=== PATIENT | male | born 1940 | race Caucasian/White ===

== ENCOUNTER 2017-12-29 09:51 | Emergency (ER) | payer MEDICARE ==
[~2017-12-29] VITALS: Ht 172.7 cm; Wt 72.6 kg
[2017-12-29 09:54] VITALS: BP_SYST 147
[2017-12-29 10:28] LABS: HEMATOCRIT 46.5 % (36-54); HEMOGLOBIN 16.4 g/dL (14.0-18.0); MEAN CORPUSCULAR HEMOGLOBIN 34 pg (27-31); MEAN CORPUSCULAR HGB CONC 35 % (32-36); MEAN CORPUSCULAR VOLUME 96 fL (79.0-98.0); PLATELET COUNT (AUTO) 228 K/uL (130-430); RED BLOOD CELL COUNT(AUTO) 4.85 MIL/uL (4.2-6.2); RED CELL DISTRIBUTION WIDTH 11.7 % (9.0-15.0); WHITE BLOOD COUNT (AUTO) 21.5 K/uL (4.8-10.8)
[2017-12-29] MEDS ORDERED: NACL 0.9% 1,000 ML IV ONE (10:30)
[2017-12-29 10:43] LABS: ANION GAP 12 (5-15); CALCIUM 9.3 mg/dL (8.4-11.0); CHLORIDE 91 mmol/L (98-107); GLUCOSE 166 mg/dL (70-99); POTASSIUM 3.8 mmol/L (3.5-5.1); SODIUM SERUM 129 mmol/L (136-145); UREA NITROGEN, BLOOD 9 mg/dL (8-21)
[2017-12-29 10:56] LABS: BAND % (MANUAL) 6 % (0-6); LYMPHOCYTES % (MANUAL) 2 % (20-46)
[2017-12-29 10:57] LABS: ALANINE AMINOTRANSFERASE 39 U/L (12-78); ALBUMIN 3.1 g/dL (3.4-4.8); ASPARTATE AMINOTRANSFERASE 58 U/L (10-37); BASOPHILS % (MANUAL) 0 % (0-2); EOSINOPHILS % (MANUAL) 0 % (0-7); MONOCYTES % (MANUAL) 6 % (0-11); TOTAL BILIRUBIN 1.5 mg/dL (0.0-1.0)
[2017-12-29 10:58] LABS: ALCOHOL, BLOOD < 3 mg/dL (<10)
[2017-12-29] MEDS ORDERED: ALLO300T2 PO (11:09)
[2017-12-29] MEDS ORDERED: METO25TA6 PO (11:12)
[2017-12-29 11:23] LABS: CKMB RELATIVE INDEX 0.8 (0.0-2.9); CREATINE KINASE MB 12.1 ng/mL (0-3.6)
[2017-12-29 11:56] LABS: BILIRUBIN,URINE NEGATIVE (NEGATIVE); BLOOD, URINE 3+ (NEGATIVE); CLARITY/URINE CLEAR (CLEAR); COLOR,URINE YELLOW (YELLOW); GLUCOSE,URINE NEGATIVE (NEGATIVE); KETONES,URINE 1+ (NEGATIVE); LEUKOCYTE ESTERASE ,URINE NEGATIVE (NEGATIVE); NITRITE, URINE NEGATIVE (NEGATIVE); PROTEIN URINE 2+ (NEGATIVE)
[2017-12-29 12:20] LABS: BACTERIA,URINE FEW /HPF (None Seen); MUCUS,URINE None Seen /LPF (None Seen); WBC,URINE 0-3 /HPF (0-3); YEAST,URINE None Seen /HPF (None Seen)
[2017-12-29] MEDS ORDERED: ASPIRIN 81 MG TAB.CHEW PO ONE (13:15)
[2017-12-29] MEDS ORDERED: KETOROLAC TROMETHAMINE 15 MG VIAL IVP ONE (13:15)
[2017-12-29] MEDS ORDERED: fentaNYL CITRATE/PF 100 MCG/2 ML AMP IVP ONE (15:00)
[2017-12-29 15:29] VITALS: BP_SYST 114
== END 2017-12-29 15:28 | disposition short-term general hospital (02) ==
LOC: SED 09:51
DX: R55 Syncope and collapse (principal); I24.9 Acute ischemic heart disease, unspecified; M54.9 Dorsalgia, unspecified; I11.0 Hypertensive heart disease with heart failure; I50.9 Heart failure, unspecified; E11.9 Type 2 diabetes mellitus without complications; Z88.6 Allergy status to analgesic agent
CPT/HCPCS: 36415; 70450; 71045; 72040; 80053; 81000; 82550; 82553; 83605; 83880; 84484; 85007; 85027; 93005; 96361; 96374; 96375; 99291; G0482; J1885; J3010; J7030

== ENCOUNTER 2018-06-24 22:33 | Emergency (ER) | payer MEDICARE ==
[~2018-06-24] VITALS: Ht 170.2 cm; Wt 77.1 kg
[~2018-06-24 22:33] MED LIST: ALLO300T2 PO; DIPH-TET-PERTUS Vaccine 0.5 ML VIAL (ADACEL) I.M. ONE; METO25TA6 PO
[2018-06-24 22:40] VITALS: BP_SYST 190
[2018-06-25] MEDS ORDERED: DIPH-TET-PERTUS Vaccine 0.5 ML VIAL (ADACEL) IM ONE (01:00)
[2018-06-25 01:55] VITALS: BP_SYST 140
== END 2018-06-25 01:55 | disposition home or self-care (01) ==
LOC: SED 22:33
DX: S51.811A Laceration without foreign body of right forearm, initial encounter (principal); I11.0 Hypertensive heart disease with heart failure; I50.9 Heart failure, unspecified; E11.9 Type 2 diabetes mellitus without complications; Z88.6 Allergy status to analgesic agent; W01.0XXA Fall on same level from slipping, tripping and stumbling without subsequent striking against object, initial encounter; Y93.89 Activity, other specified; Y92.89 Other specified places as the place of occurrence of the external cause; Y99.8 Other external cause status
CPT/HCPCS: 90715; 99283

== ENCOUNTER 2018-12-05 21:35 | Emergency (ER) | payer MEDICARE ==
[~2018-12-05] VITALS: Ht 170.2 cm; Wt 74.8 kg
[2018-12-05 21:35] VITALS: BP_SYST 184
[~2018-12-05 21:35] MED LIST changes: -DIPH-TET-PERTUS Vaccine 0.5 ML VIAL (ADACEL) I.M. ONE
[2018-12-05 23:40] LABS: BILIRUBIN,URINE NEGATIVE (NEGATIVE); BLOOD, URINE NEGATIVE (NEGATIVE); CLARITY/URINE CLEAR (CLEAR); COLOR,URINE YELLOW (YELLOW); GLUCOSE,URINE NEGATIVE (NEGATIVE); KETONES,URINE NEGATIVE (NEGATIVE); LEUKOCYTE ESTERASE ,URINE NEGATIVE (NEGATIVE); NITRITE, URINE NEGATIVE (NEGATIVE); PROTEIN URINE NEGATIVE (NEGATIVE); UROBILINOGEN,URINE 0.2 (0.2-1.0)
[2018-12-05 23:50] LABS: BARBITURATE, URINE NEGATIVE (NEG <=200); BENZODIAZEPINE, URINE NEGATIVE (NEG <=150); CANNABINOID, URINE NEGATIVE (NEG <=50); COCAINE, URINE NEGATIVE (NEG <=150); METHAMPHETAMINES SCREEN,URINE NEGATIVE (NEG <=500); OPIATE, URINE NEGATIVE (NEG <=100); PHENCYCLIDINE SCREEN,URINE NEGATIVE (NEG <=25); UR TRICYCLIC ANTIDEPRESSANTS NEGATIVE (NEG <=300); URINE AMPHETAMINE NEGATIVE (NEG <=500); URINE METHADONE NEGATIVE (NEG <=200); URINE OXYCODONE SCREEN NEGATIVE (NEG <=100); URINE PROPOXYPHENE SCREEN NEGATIVE (NEG <=300)
[2018-12-05 23:54] LABS: ANION GAP 7 (5-15); CALCIUM 9.1 mg/dL (8.4-11.0); CHLORIDE 98 mmol/L (98-107); CREATININE 0.83 mg/dL (0.55-1.30); GLUCOSE 76 mg/dL (70-99); POTASSIUM 3.7 mmol/L (3.5-5.1); SODIUM SERUM 137 mmol/L (136-145); UREA NITROGEN, BLOOD 8 mg/dL (8-21)
[2018-12-06] LABS: ALANINE AMINOTRANSFERASE 22 U/L (12-78); ALBUMIN 3.3 g/dL (3.4-4.8); ALCOHOL, BLOOD 102 mg/dL (<10); ASPARTATE AMINOTRANSFERASE 25 U/L (10-37); TOTAL BILIRUBIN 0.4 mg/dL (0.0-1.0)
[2018-12-06 00:05] LABS: BASOPHILS # (AUTO) 0.1 K/uL (0.0-0.2); EOSINOPHILS # (AUTO) 0.2 K/uL (0.0-0.4); EOSINOPHILS % (AUTO) 3.3 % (0.0-4.0); HEMATOCRIT 45.2 % (36-54); LYMPHOCYTES # (AUTO) 0.8 K/uL (1.0-5.5); LYMPHOCYTES % (AUTO) 12.8 % (20.5-51.5); MEAN CORPUSCULAR HEMOGLOBIN 34 pg (27-31); MEAN CORPUSCULAR HGB CONC 36 % (32-36); MEAN CORPUSCULAR VOLUME 97 fL (79.0-98.0); MONOCYTES # (AUTO) 0.7 K/uL (0.0-1.0); MONOCYTES % (AUTO) 11.2 % (1.7-9.3); NEUTROPHILS # (AUTO) 4.6 K/uL (1.8-7.7); NEUTROPHILS % (AUTO) 71.7 % (40.0-70.0); PLATELET COUNT (AUTO) 251 K/uL (130-430); RED BLOOD CELL COUNT(AUTO) 4.67 MIL/uL (4.2-6.2); RED CELL DISTRIBUTION WIDTH 13.3 % (9.0-15.0); WHITE BLOOD COUNT (AUTO) 6.4 K/uL (4.8-10.8)
[2018-12-06 00:16] LABS: PROTHROMBIN TIME 10.3 SECS (9.5-12.5)
[2018-12-06 02:17] VITALS: BP_SYST 142
== END 2018-12-06 02:17 | disposition home or self-care (01) ==
LOC: SED 21:35
DX: S09.90XA Unspecified injury of head, initial encounter (principal); R55 Syncope and collapse; F10.10 Alcohol abuse, uncomplicated; I11.0 Hypertensive heart disease with heart failure; I50.9 Heart failure, unspecified; E11.9 Type 2 diabetes mellitus without complications; Z88.6 Allergy status to analgesic agent; Z79.899 Other long term (current) drug therapy; W18.09XA Striking against other object with subsequent fall, initial encounter; Y93.89 Activity, other specified; Y92.89 Other specified places as the place of occurrence of the external cause; Y99.8 Other external cause status
CPT/HCPCS: 36415; 70450; 71045; 80053; 80307; 81003; 84484; 85025; 85610; 85730; 93005; 99284; G0482

== ENCOUNTER 2018-12-22 21:25 | Emergency (ER) | payer MEDICARE ==
[~2018-12-22] VITALS: Ht 170.2 cm; Wt 74.8 kg
[2018-12-22 21:28] VITALS: BP_SYST 156
[2018-12-22] MEDS ORDERED: NACL 0.9% 1,000 ML IV ONE (22:00)
[2018-12-22 22:10] LABS: BASOPHILS # (AUTO) 0.1 K/uL (0.0-0.2); BASOPHILS % (AUTO) 1.1 % (0.0-2.0); EOSINOPHILS # (AUTO) 0.2 K/uL (0.0-0.4); EOSINOPHILS % (AUTO) 3.4 % (0.0-4.0); HEMATOCRIT 41.3 % (36-54); HEMOGLOBIN 14.5 g/dL (14.0-18.0); LYMPHOCYTES # (AUTO) 0.8 K/uL (1.0-5.5); LYMPHOCYTES % (AUTO) 14.5 % (20.5-51.5); MEAN CORPUSCULAR HEMOGLOBIN 34 pg (27-31); MEAN CORPUSCULAR HGB CONC 35 % (32-36); MEAN CORPUSCULAR VOLUME 96 fL (79.0-98.0); MONOCYTES # (AUTO) 0.6 K/uL (0.0-1.0); MONOCYTES % (AUTO) 10.9 % (1.7-9.3); NEUTROPHILS # (AUTO) 3.6 K/uL (1.8-7.7); NEUTROPHILS % (AUTO) 70.1 % (40.0-70.0); PLATELET COUNT (AUTO) 175 K/uL (130-430); RED BLOOD CELL COUNT(AUTO) 4.31 MIL/uL (4.2-6.2); WHITE BLOOD COUNT (AUTO) 5.2 K/uL (4.8-10.8)
[2018-12-22 22:23] LABS: ANION GAP 11 (5-15); CALCIUM 8.4 mg/dL (8.4-11.0); CHLORIDE 99 mmol/L (98-107); CREATININE 0.81 mg/dL (0.55-1.30); GLUCOSE 85 mg/dL (70-99); POTASSIUM 3.5 mmol/L (3.5-5.1); SODIUM SERUM 135 mmol/L (136-145); UREA NITROGEN, BLOOD 8 mg/dL (8-21)
[2018-12-22 22:28] LABS: ALANINE AMINOTRANSFERASE 16 U/L (12-78); ALCOHOL, BLOOD 125 mg/dL (<10); ASPARTATE AMINOTRANSFERASE 33 U/L (10-37); TOTAL BILIRUBIN 0.6 mg/dL (0.0-1.0)
[2018-12-22 22:44] LABS: BILIRUBIN,URINE NEGATIVE (NEGATIVE); BLOOD, URINE NEGATIVE (NEGATIVE); CLARITY/URINE CLEAR (CLEAR); COLOR,URINE YELLOW (YELLOW); GLUCOSE,URINE NEGATIVE (NEGATIVE); KETONES,URINE NEGATIVE (NEGATIVE); LEUKOCYTE ESTERASE ,URINE NEGATIVE (NEGATIVE); NITRITE, URINE NEGATIVE (NEGATIVE); PROTEIN URINE NEGATIVE (NEGATIVE); UROBILINOGEN,URINE 0.2 (0.2-1.0)
[2018-12-23 10:09] VITALS: BP_SYST 161
== END 2018-12-23 10:05 | disposition home or self-care (01) ==
LOC: SED 21:25
DX: S41.112A Laceration without foreign body of left upper arm, initial encounter (principal); S41.111A Laceration without foreign body of right upper arm, initial encounter; F10.129 Alcohol abuse with intoxication, unspecified; I11.0 Hypertensive heart disease with heart failure; I50.9 Heart failure, unspecified; E11.9 Type 2 diabetes mellitus without complications; Z88.6 Allergy status to analgesic agent; Z79.899 Other long term (current) drug therapy; Y90.6 Blood alcohol level of 120-199 mg/100 ml; X58.XXXA Exposure to other specified factors, initial encounter; Y93.89 Activity, other specified; Y92.89 Other specified places as the place of occurrence of the external cause; Y99.8 Other external cause status
CPT/HCPCS: 36415; 70450; 71110; 80053; 81003; 85025; 99284; G0482; J7030

== ENCOUNTER 2019-04-29 04:02 | Emergency (ER) | payer MEDICARE ==
[~2019-04-29] VITALS: Ht 170.2 cm; Wt 74.8 kg
[2019-04-29 04:02] VITALS: BP_SYST 150
--- NOTE | 2019-04-29 04:10 | NUR ---
Patient to ER bed 1 to gown for evaluation. Side rails up.
--- NOTE | 2019-04-29 04:12 | NUR ---
Dr. Julio bedside for Pt Eval
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
--- NOTE | 2019-04-29 04:47 | NUR ---
Pt taken to Radiology in stable condition
--- NOTE | 2019-04-29 05:00 | NUR ---
Pt back from Radiology, well tolerated
[2019-04-29 06:00] VITALS: BP_SYST 150
--- NOTE | 2019-04-29 06:00 | NUR ---
Patient given written and verbal discharge instructions and verbalizes understanding. ER MD discussed with patient the results and treatment provided. Patient in stable condition. ID arm band removed. Patient educated on pain management and to follow up with PMD. Pain Scale 0/10 Opportunity for questions provided and answered.
== END 2019-04-29 06:00 | disposition home or self-care (01) ==
LOC: SED 04:02
DX: S80.02XA Contusion of left knee, initial encounter (principal); E11.9 Type 2 diabetes mellitus without complications; I11.0 Hypertensive heart disease with heart failure; I50.9 Heart failure, unspecified; Z88.6 Allergy status to analgesic agent; Z79.899 Other long term (current) drug therapy; Y04.0XXA Assault by unarmed brawl or fight, initial encounter; Y93.89 Activity, other specified; Y92.89 Other specified places as the place of occurrence of the external cause; Y99.8 Other external cause status
CPT/HCPCS: 73552; 99283

== ENCOUNTER 2019-05-25 00:59 | Emergency (ER) | payer MEDICARE ==
[~2019-05-25] VITALS: Ht 170.2 cm; Wt 74.8 kg
[2019-05-25 01:12] VITALS: BP_SYST 174
--- NOTE | 2019-05-25 01:12 | NUR ---
Patient triaged and placed in waiting room. VSS and patient appears in no acute distress at this time. Accompanied by [facility] transport, awaiting available bed, and MD notified of need for MSE.
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
--- NOTE | 2019-05-25 03:00 | NUR ---
Pt to bed 5 for evaluation
[2019-05-25 03:06] LABS: BASOPHILS % (AUTO) 0.5 % (0.0-2.0); EOSINOPHILS # (AUTO) 0.2 K/uL (0.0-0.4); EOSINOPHILS % (AUTO) 2.3 % (0.0-4.0); HEMATOCRIT 41.3 % (36-54); LYMPHOCYTES # (AUTO) 0.7 K/uL (1.0-5.5); LYMPHOCYTES % (AUTO) 7.2 % (20.5-51.5); MEAN CORPUSCULAR HEMOGLOBIN 31 pg (27-31); MEAN CORPUSCULAR HGB CONC 34 % (32-36); MEAN CORPUSCULAR VOLUME 93 fL (79.0-98.0); MONOCYTES # (AUTO) 0.6 K/uL (0.0-1.0); MONOCYTES % (AUTO) 6.4 % (1.7-9.3); NEUTROPHILS # (AUTO) 8.1 K/uL (1.8-7.7); NEUTROPHILS % (AUTO) 83.6 % (40.0-70.0); PLATELET COUNT (AUTO) 264 K/uL (130-430); RED BLOOD CELL COUNT(AUTO) 4.46 MIL/uL (4.2-6.2); RED CELL DISTRIBUTION WIDTH 13.8 % (9.0-15.0); WHITE BLOOD COUNT (AUTO) 9.7 K/uL (4.8-10.8)
[2019-05-25 03:14] LABS: ANION GAP 8 (5-15); CALCIUM 9.4 mg/dL (8.4-11.0); CHLORIDE 101 mmol/L (98-107); CREATININE 1.01 mg/dL (0.55-1.30); GLUCOSE 113 mg/dL (70-99); POTASSIUM 4.2 mmol/L (3.5-5.1); SODIUM SERUM 139 mmol/L (136-145); UREA NITROGEN, BLOOD 17 mg/dL (8-21)
[2019-05-25 03:16] LABS: BILIRUBIN,URINE NEGATIVE (NEGATIVE); BLOOD, URINE NEGATIVE (NEGATIVE); CLARITY/URINE CLEAR (CLEAR); COLOR,URINE YELLOW (YELLOW); GLUCOSE,URINE NEGATIVE (NEGATIVE); KETONES,URINE NEGATIVE (NEGATIVE); LEUKOCYTE ESTERASE ,URINE NEGATIVE (NEGATIVE); NITRITE, URINE NEGATIVE (NEGATIVE); PH,URINE 5.5 (5.0-8.0); PROTEIN URINE NEGATIVE (NEGATIVE); UROBILINOGEN,URINE 0.2 (0.2-1.0)
[2019-05-25 03:27] LABS: BARBITURATE, URINE NEGATIVE (NEG <=200); BENZODIAZEPINE, URINE POSITIVE (NEG <=150); CANNABINOID, URINE NEGATIVE (NEG <=50); COCAINE, URINE NEGATIVE (NEG <=150); METHAMPHETAMINES SCREEN,URINE NEGATIVE (NEG <=500); OPIATE, URINE NEGATIVE (NEG <=100); PHENCYCLIDINE SCREEN,URINE NEGATIVE (NEG <=25); UR TRICYCLIC ANTIDEPRESSANTS NEGATIVE (NEG <=300); URINE AMPHETAMINE NEGATIVE (NEG <=500); URINE METHADONE NEGATIVE (NEG <=200); URINE OXYCODONE SCREEN NEGATIVE (NEG <=100); URINE PROPOXYPHENE SCREEN NEGATIVE (NEG <=300)
--- NOTE | 2019-05-25 03:30 | NUR ---
Dr. Ambrocio at bedside to assess pt.
[2019-05-25 03:33] LABS: ALANINE AMINOTRANSFERASE 19 U/L (12-78); ALBUMIN 3.7 g/dL (3.4-4.8); ASPARTATE AMINOTRANSFERASE 23 U/L (10-37); THYROID STIMULATING HORMONE 6.89 uIu/mL (0.36-3.74); TOTAL BILIRUBIN 0.7 mg/dL (0.0-1.0)
[2019-05-25 03:35] LABS: ACETAMINOPHEN < 1 ug/mL (1-30); ALCOHOL, BLOOD < 3 mg/dL (<10)
--- NOTE | 2019-05-25 04:00 | NUR ---
Pt resting quietly in room with eyes closed with director of cardiac rehabilitation connected. VSS, SHANNEN.
[2019-05-25] MEDS ORDERED: DIPH-TET-PERTUS Vaccine 0.5 ML VIAL (ADACEL) I.M. ONE (05:00)
--- NOTE | 2019-05-25 05:00 | NUR ---
Skin tear noted to [facility] and middle knucle of LHA. Pt states that "I must have tripped and fallen. Denies hitting head or LOC. Skin tears irrigated with betadine and NS, pat dry with sterile guaze. Skin boarders well approximated with skin adhesive and secured with steristrips. Covered with Bandaids. Pt tolerated well.
[2019-05-25 06:40] VITALS: BP_SYST 129
--- NOTE | 2019-05-25 06:40 | NUR ---
Patient to be transferred to [facility]. Is being transferred due to higher level of care. Receiving facility has accepting physician and available space. ER physician has signed transfer form. Patient or responsible libertarian has agreed to transfer and signed form. Patient belongings inventoried and will be sent with patient. Copy of nursing notes, lab reports, EKG, Physicians Orders and X-rays to be sent with patient. Report called to JULIAN Xiao at receiving facility. Receiving physician is Valeria Lowe. Pt leaves via [facility] ambulance in stable condition.
== END 2019-05-26 06:40 | disposition short-term general hospital (02) ==
LOC: SED 00:59
DX: R41.82 Altered mental status, unspecified (principal); I10 Essential (primary) hypertension; E11.9 Type 2 diabetes mellitus without complications; Z88.6 Allergy status to analgesic agent
CPT/HCPCS: 36415; 70450; 72125; 80053; 80307; 81003; 83605; 83880; 84439; 84443; 84484; 85025; 90715; 93005; 99285; G0480; G0481; G0482

== ENCOUNTER 2020-02-04 15:15 | Emergency (ER) | payer MEDICARE ==
[~2020-02-04] VITALS: Ht 152.4 cm; Wt 63.5 kg
[2020-02-04 15:28] VITALS: BP_SYST 144
[2020-02-04] MEDS ORDERED: FOLI-43 PO (15:57)
[2020-02-04] MEDS ORDERED: ALLO300T2 PO (15:57)
[2020-02-04] MEDS ORDERED: TAMS-11 PO (15:57)
[2020-02-04] MEDS ORDERED: CARV12.548 PO (15:57)
[2020-02-04] MEDS ORDERED: VITA1CAP PO (15:57)
[2020-02-04] MEDS ORDERED: GABA-529 PO (15:57)
[2020-02-04] MEDS ORDERED: CLOP75TA32 PO (15:57)
[2020-02-04] MEDS ORDERED: LIP40 PO (15:57)
[2020-02-04] MEDS ORDERED: ALEN10TA25 PO (15:57)
[2020-02-04] MEDS ORDERED: NS 500 ML IV ONE (16:00)
[2020-02-04 16:37] LABS: BILIRUBIN,URINE NEGATIVE (NEGATIVE); BLOOD, URINE NEGATIVE (NEGATIVE); CLARITY/URINE CLEAR (CLEAR); COLOR,URINE YELLOW (YELLOW); GLUCOSE,URINE NEGATIVE (NEGATIVE); KETONES,URINE NEGATIVE (NEGATIVE); NITRITE, URINE NEGATIVE (NEGATIVE); PH,URINE 5.5 (5.0-8.0); PROTEIN URINE NEGATIVE (NEGATIVE); UROBILINOGEN,URINE 0.2 (0.2-1.0)
[2020-02-04 16:44] LABS: LEUKOCYTE ESTERASE ,URINE 2+ (NEGATIVE)
[2020-02-04 16:46] LABS: BACTERIA,URINE FEW /HPF (None Seen); MUCUS,URINE None Seen /LPF (None Seen); RBC,URINE NONE SEEN /HPF (0-3); WBC,URINE 20-50 /HPF (0-3)
[2020-02-04 16:47] LABS: ANION GAP 4 (5-15); BASOPHILS # (AUTO) 0.1 K/uL (0.0-0.2); BASOPHILS % (AUTO) 0.7 % (0.0-2.0); CALCIUM 8.3 mg/dL (8.4-11.0); CHLORIDE 108 mmol/L (98-107); CREATININE 1.18 mg/dL (0.55-1.30); EOSINOPHILS # (AUTO) 0.3 K/uL (0.0-0.4); EOSINOPHILS % (AUTO) 3.2 % (0.0-4.0); GLUCOSE 98 mg/dL (70-99); HEMATOCRIT 30.5 % (36-54); LYMPHOCYTES # (AUTO) 1.7 K/uL (1.0-5.5); LYMPHOCYTES % (AUTO) 18.4 % (20.5-51.5); MEAN CORPUSCULAR HEMOGLOBIN 28 pg (27-31); MEAN CORPUSCULAR HGB CONC 33 % (32-36); MEAN CORPUSCULAR VOLUME 87 fL (79.0-98.0); MONOCYTES # (AUTO) 0.4 K/uL (0.0-1.0); MONOCYTES % (AUTO) 4.6 % (1.7-9.3); NEUTROPHILS # (AUTO) 6.8 K/uL (1.8-7.7); NEUTROPHILS % (AUTO) 73.1 % (40.0-70.0); PLATELET COUNT (AUTO) 295 K/uL (130-430); POTASSIUM 4.5 mmol/L (3.5-5.1); RED BLOOD CELL COUNT(AUTO) 3.52 MIL/uL (4.2-6.2); RED CELL DISTRIBUTION WIDTH 17.2 % (9.0-15.0); SODIUM SERUM 143 mmol/L (136-145); UREA NITROGEN, BLOOD 17 mg/dL (8-21); WHITE BLOOD COUNT (AUTO) 9.3 K/uL (4.8-10.8)
[2020-02-04 16:50] LABS: INR 1.1 (0.80-1.20); PROTHROMBIN TIME 10.8 SECS (9.5-12.5)
[2020-02-04 16:52] LABS: ALBUMIN 1.5 g/dL (3.4-4.8); ASPARTATE AMINOTRANSFERASE 16 U/L (10-37); TOTAL BILIRUBIN 0.3 mg/dL (0.0-1.0)
[2020-02-04] MEDS ORDERED: DOXYCYCLINE HYCLATE 100 MG in D5W 100 ML IV ONE (17:00)
[2020-02-04 17:23] LABS: ALANINE AMINOTRANSFERASE 10 U/L (12-78)
[2020-02-04] MEDS ORDERED: DOXYCYCLINE HYCLATE 100 MG VIAL IV ONE (17:35)
[2020-02-04] MEDS ORDERED: DEXAMETHASONE SOD PHOSPHATE 10 MG/ML VIAL IVP ONE (18:45)
[2020-02-04] MEDS ORDERED: AZITHROMYCIN 500 MG in NS 250 ML IV ONE (18:45)
[2020-02-04] MEDS ORDERED: AZITHROMYCIN 500 MG/VIAL (ZITHROMAX) IV ONE (19:02)
[2020-02-04] MEDS ORDERED: VANCOMYCIN HCL 1,000 MG in NS 250 ML IV ONE (21:00)
[2020-02-04] MEDS ORDERED: PIPERACILLIN/TAZO 3.375 GM in NS 50 ML IV ONE (21:00)
[2020-02-04] MEDS ORDERED: VANCOMYCIN HCL 1000 MG/VIAL IV ONE (21:18)
[2020-02-04] MEDS ORDERED: PIPERACILLIN/TAZOBACTAM 3.375 GM/VIAL (ZOSYN) IV ONE (21:20)
[2020-02-04 21:35] VITALS: BP_SYST 126
== END 2020-02-04 21:35 | disposition short-term general hospital (02) ==
LOC: SED 15:15
DX: R41.82 Altered mental status, unspecified (principal); N39.0 Urinary tract infection, site not specified; J18.9 Pneumonia, unspecified organism; I11.0 Hypertensive heart disease with heart failure; I50.9 Heart failure, unspecified; E11.9 Type 2 diabetes mellitus without complications; Z79.899 Other long term (current) drug therapy; Z88.1 Allergy status to other antibiotic agents; Z88.6 Allergy status to analgesic agent; Z20.828 Contact with and (suspected) exposure to other viral communicable diseases
CPT/HCPCS: 36415; 36600; 70450; 71045; 80053; 81000; 82803; 83605; 84484; 85025; 85610; 85730; 87040; 87086; 87426; 93005; 96365; 96367; 96375; 99285; J0456; J1100; J2543; J3490; J7030; J3370

== ENCOUNTER 2021-05-18 12:21 | Emergency (ER) | payer MEDICARE, SELFPAY ==
[~2021-05-18] VITALS: Ht 175.3 cm; Wt 77.1 kg
[2021-05-18 12:21] VITALS: BP_SYST 132
[~2021-05-18 12:21] MED LIST changes: +ALEN10TA25 PO; +CARV12.548 PO; +CLOP75TA32 PO; +FOLI-43 PO; +GABA-529 PO; +LIP40 PO; +TAMS-11 PO; +VITA1CAP PO
--- NOTE | 2021-05-18 12:21 | NUR ---
BROUGHT IN BY [facility], PLACED IN HALLWAY BED AND TRIAGED. REPORT GIVEN TO BEATRIZ
[2021-05-18] MEDS ORDERED: NACL 0.9% 1,000 ML IV ONE (12:45)
--- NOTE | 2021-05-18 12:45 | NUR ---
Dr Ott placed orders for patient
--- NOTE | 2021-05-18 12:52 | NUR ---
Assumed care of patient. Patient awake but confused; slightly combative when EKG completed. Patient not verbalizing any words; making sounds only. Will continue to monitor.
--- NOTE | 2021-05-18 12:54 | NUR ---
Patient being transported for CT scan/Xray via gurney.
--- NOTE | 2021-05-18 13:30 | NUR ---
# 20 gauge angiocath placed to L AC. Use of asceptic technique. Opsite placed over site. Blood return noted. Blood for lab drawn from site. Flushed with 10 cc of normal saline. No evidence of infiltration noted. Patient tolerated well.
--- NOTE | 2021-05-18 13:40 | NUR ---
COVID swab collected at bedside and sent to lab
[2021-05-18 14:05] LABS: BASOPHILS # (AUTO) 0.1 K/uL (0.0-0.2); BASOPHILS % (AUTO) 0.5 % (0.0-2.0); HEMATOCRIT 38.7 % (36-54); HEMOGLOBIN 13.2 g/dL (14.0-18.0); LYMPHOCYTES # (AUTO) 0.9 K/uL (1.0-5.5); LYMPHOCYTES % (AUTO) 7.9 % (20.5-51.5); MEAN CORPUSCULAR HEMOGLOBIN 30 pg (27-31); MEAN CORPUSCULAR HGB CONC 34 % (32-36); MEAN CORPUSCULAR VOLUME 87 fL (79.0-98.0); MONOCYTES # (AUTO) 0.6 K/uL (0.0-1.0); MONOCYTES % (AUTO) 5.1 % (1.7-9.3); NEUTROPHILS # (AUTO) 9.9 K/uL (1.8-7.7); NEUTROPHILS % (AUTO) 86.5 % (40.0-70.0); PLATELET COUNT (AUTO) 230 K/uL (130-430); RED BLOOD CELL COUNT(AUTO) 4.44 MIL/uL (4.2-6.2); RED CELL DISTRIBUTION WIDTH 15.3 % (9.0-15.0); WHITE BLOOD COUNT (AUTO) 11.5 K/uL (4.8-10.8)
[2021-05-18] MEDS ORDERED: CEFEPIME 1 GM in D5W 50 ML IV ONE (14:30)
[2021-05-18 14:35] LABS: ANION GAP 6 (5-15); CALCIUM 8.7 mg/dL (8.4-11.0); CHLORIDE 94 mmol/L (98-107); CREATININE 1.02 mg/dL (0.55-1.30); GLUCOSE 138 mg/dL (70-99); POTASSIUM 4.3 mmol/L (3.5-5.1); SODIUM SERUM 130 mmol/L (136-145); UREA NITROGEN, BLOOD 18 mg/dL (8-21)
[2021-05-18] MEDS ORDERED: CEFEPIME 1 GM/VIAL (MAXIPIME) ONE (14:50)
[2021-05-18] MEDS ORDERED: LIP40 PO (15:36)
[2021-05-18] MEDS ORDERED: ZINC50TA69 PO (15:36)
[2021-05-18] MEDS ORDERED: CLOP75TA32 PO (15:36)
[2021-05-18] MEDS ORDERED: CARV6.2554 PO (15:36)
[2021-05-18] MEDS ORDERED: GABA-529 PO (15:36)
[2021-05-18] MEDS ORDERED: ASCO500T20 PO (15:36)
[2021-05-18] MEDS ORDERED: VITA1CAP PO (15:36)
[2021-05-18] MEDS ORDERED: CRAN450T9 PO (15:36)
[2021-05-18] MEDS ORDERED: FOLI-43 PO (15:36)
[2021-05-18] MEDS ORDERED: ACET-73 PO (15:36)
[2021-05-18] MEDS ORDERED: SER25 PO (15:36)
[2021-05-18] MEDS ORDERED: VITD2000 PO (15:36)
[2021-05-18] MEDS ORDERED: TAMS-11 PO (15:36)
[2021-05-18] MEDS ORDERED: ALLO300T2 PO (15:36)
[2021-05-18] MEDS ORDERED: SENN8.6T19 PO (15:36)
[2021-05-18] MEDS ORDERED: MELA5TAB12 PO (15:36)
[2021-05-18] MEDS ORDERED: FER300L PO (15:36)
[2021-05-18] MEDS ORDERED: OMEP20CA15 PO (15:36)
[2021-05-18] MEDS ORDERED: ALEN10TA25 PO (15:36)
--- NOTE | 2021-05-18 15:37 | NUR ---
Medication reconciliation completed with information provided by [facility] paperwork. Any prior medication reconciliation on file was reviewed and corrected.
[2021-05-18 16:14] LABS: BILIRUBIN,URINE NEGATIVE (NEGATIVE); BLOOD, URINE 1+ (NEGATIVE); CLARITY/URINE CLOUDY (CLEAR); COLOR,URINE YELLOW (YELLOW); GLUCOSE,URINE NEGATIVE (NEGATIVE); KETONES,URINE NEGATIVE (NEGATIVE); LEUKOCYTE ESTERASE ,URINE 3+ (NEGATIVE); NITRITE, URINE POSITIVE (NEGATIVE); PROTEIN URINE 2+ (NEGATIVE)
[2021-05-18] MEDS ORDERED: AZITHROMYCIN 500 MG in NS 250 ML IV ONE (16:15)
[2021-05-18] MEDS ORDERED: AZITHROMYCIN 500 MG/VIAL (ZITHROMAX) IV ONE (16:21)
[2021-05-18 16:55] LABS: BACTERIA,URINE MANY /HPF (None Seen); WBC,URINE >100 /HPF (0-3)
[2021-05-18 16:56] LABS: MUCUS,URINE None Seen /LPF (None Seen)
[2021-05-18] MEDS ORDERED: IOHEXOL 350 mgI/mL, 150 ML INFUS..BTL IV ONE (17:32)
--- NOTE | 2021-05-18 17:46 | NUR ---
Patient returned from CT scan via [facility]
--- NOTE | 2021-05-18 18:31 | NUR ---
Patient resting in bed; remains combative when touched. Requires req\direction to leve BP cuff and pulse oximeter on and to get labs done. Patient now able to state 1-2 comprehensible words but overall remains altered. Will continue to monitor.
--- NOTE | 2021-05-18 19:15 | NUR ---
Pt report received. Pt resting quietly, easily awakened, drifts back to sleep. Pt denies c/o pain or discomfort. VSS, NAD.
--- NOTE | 2021-05-18 19:15 | NUR ---
Report given to Michael JORDAN to assume care
--- NOTE | 2021-05-18 22:00 | NUR ---
No needs verbalized. VSS, NAD.
[2021-05-19 01:35] VITALS: BP_SYST 125
--- NOTE | 2021-05-19 01:36 | NUR ---
Patient to be transferred to [facility], Rm 4003. Is being transferred due to higher level of care. Receiving facility has accepting physician and available space. ER physician has signed transfer form. Patient or responsible libertarian has agreed to transfer and signed form. Patient belongings inventoried and will be sent with patient. Copy of nursing notes, lab reports, EKG, Physicians Orders and X-rays to be sent with patient. Report called to JULIAN Cazares at receiving facility. Receiving physician is Steve Hartman Pt leaves in c/o [facility] ambulance.
== END 2021-05-19 01:35 | disposition short-term general hospital (02) ==
LOC: SED 12:21
DX: G93.40 Encephalopathy, unspecified (principal); J18.9 Pneumonia, unspecified organism; I10 Essential (primary) hypertension; E11.9 Type 2 diabetes mellitus without complications; Z88.6 Allergy status to analgesic agent; Z88.8 Allergy status to other drugs, medicaments and biological substances; Z79.899 Other long term (current) drug therapy; Z20.822 Contact with and (suspected) exposure to COVID-19
CPT/HCPCS: 36415; 70450; 71045; 71260; 76376; 80048; 81000; 82140; 83605; 84484; 85025; 87040; 87086; 87426; 96361; 96365; 96367; 99285; J0456; J0692; J7030; Q9967; 93005

== ENCOUNTER 2021-11-06 15:16 | Emergency (ER) | payer MEDICARE ==
[~2021-11-06] VITALS: Ht 170.2 cm; Wt 64.4 kg
[~2021-11-06 15:16] MED LIST changes: +ACET-73 PO; +ASCO500T20 PO; +CARV6.2554 PO; +CRAN450T9 PO; +FER300L PO; +MELA5TAB12 PO; +OMEP20CA15 PO; +SENN8.6T19 PO; +SER25 PO; +VITD2000 PO; +ZINC50TA69 PO
[2021-11-06 15:39] VITALS: BP_SYST 168
[2021-11-06 16:26] LABS: BASOPHILS % (AUTO) 0.3 % (0.0-2.0); EOSINOPHILS % (AUTO) 0.7 % (0.0-4.0); HEMATOCRIT 38.3 % (36-54); HEMOGLOBIN 12.9 g/dL (14.0-18.0); LYMPHOCYTES # (AUTO) 0.9 K/uL (1.0-5.5); LYMPHOCYTES % (AUTO) 16.3 % (20.5-51.5); MEAN CORPUSCULAR HEMOGLOBIN 29 pg (27-31); MEAN CORPUSCULAR HGB CONC 34 % (32-36); MEAN CORPUSCULAR VOLUME 86 fL (79.0-98.0); MONOCYTES # (AUTO) 0.6 K/uL (0.0-1.0); MONOCYTES % (AUTO) 11.2 % (1.7-9.3); NEUTROPHILS # (AUTO) 3.8 K/uL (1.8-7.7); NEUTROPHILS % (AUTO) 71.5 % (40.0-70.0); PLATELET COUNT (AUTO) 191 K/uL (130-430); RED BLOOD CELL COUNT(AUTO) 4.44 MIL/uL (4.2-6.2); RED CELL DISTRIBUTION WIDTH 15.4 % (9.0-15.0); WHITE BLOOD COUNT (AUTO) 5.2 K/uL (4.8-10.8)
[2021-11-06 16:38] LABS: ANION GAP 5 (5-15); CALCIUM 7.6 mg/dL (8.4-11.0); CHLORIDE 95 mmol/L (98-107); CREATININE 0.86 mg/dL (0.55-1.30); GLUCOSE 180 mg/dL (70-99); POTASSIUM 3.9 mmol/L (3.5-5.1); SODIUM SERUM 130 mmol/L (136-145); UREA NITROGEN, BLOOD 22 mg/dL (8-21)
[2021-11-06 16:53] LABS: ALANINE AMINOTRANSFERASE 12 U/L (12-78); ALBUMIN 2.1 g/dL (3.4-4.8); ASPARTATE AMINOTRANSFERASE 27 U/L (10-37); TOTAL BILIRUBIN 0.5 mg/dL (0.0-1.0)
[2021-11-06] MEDS ORDERED: cefTRIAXone 1 GM IVPB PREMIX 50 ML IV ONE ×2 (18:15→19:46)
[2021-11-06 19:21] LABS: BILIRUBIN,URINE NEGATIVE (NEGATIVE); CLARITY/URINE SL CLOUDY (CLEAR); COLOR,URINE YELLOW (YELLOW); GLUCOSE,URINE NEGATIVE (NEGATIVE); KETONES,URINE NEGATIVE (NEGATIVE); LEUKOCYTE ESTERASE ,URINE 2+ (NEGATIVE); NITRITE, URINE POSITIVE (NEGATIVE); PROTEIN URINE 1+ (NEGATIVE); UROBILINOGEN,URINE 0.2 (0.2-1.0)
[2021-11-06 19:46] LABS: BLOOD, URINE TRACE (NEGATIVE)
[2021-11-06 19:50] LABS: RBC,URINE 0-3 /HPF (0-3); WBC,URINE 20-50 /HPF (0-3)
[2021-11-06 19:51] LABS: BACTERIA,URINE MANY /HPF (None Seen); COARSE GRANULAR CASTS,URINE 0-10 /LPF (None Seen); MUCUS,URINE None Seen /LPF (None Seen); URINE AMORPHOUS URATE 2+ /HPF (None Seen)
[2021-11-06 22:00] VITALS: BP_SYST 170
== END 2021-11-06 22:14 | disposition short-term general hospital (02) ==
LOC: SED 15:16
DX: U07.1 COVID-19 (principal); J90 Pleural effusion, not elsewhere classified; R09.02 Hypoxemia; N39.0 Urinary tract infection, site not specified; R79.89 Other specified abnormal findings of blood chemistry; J44.9 Chronic obstructive pulmonary disease, unspecified; E11.9 Type 2 diabetes mellitus without complications; I11.0 Hypertensive heart disease with heart failure; I50.9 Heart failure, unspecified; Z88.6 Allergy status to analgesic agent; Z88.8 Allergy status to other drugs, medicaments and biological substances; Z79.899 Other long term (current) drug therapy
CPT/HCPCS: 36415; 71045; 80053; 81000; 83605; 83880; 84484; 85025; 87086; 87426; 93005; 96365; 99285; J0696